=== PATIENT | male | born 1985 | race Caucasian/White ===

== ENCOUNTER 2025-04-03 07:53 | Observation (INO) | payer OTHER ==
[2025-04-03 08:32] LABS: Absolute Eosinophils 0.2 K/uL (0-0.5); Absolute Lymphocytes (CBC) 2.2 K/uL (0.7-4.9); Absolute Monocytes 0.4 K/uL (0.1-1.3); Absolute Neutrophil 3.2 K/uL (1.8-8.0); Basophils % 0.7 % (0-1.3); Eosinophils % 2.6 % (0-4.4); Hematocrit 55.3 % (39.6-49.0); Hemoglobin 19.5 g/dL (13.6-17.9); Lymphocytes % 36.9 % (15.3-44.8); MCH 30.6 pg (27.0-35.0); MCHC 35.3 g/dL (32.0-36.0); MCV 86.8 fL (80-100); MPV 8.8 fL (7.6-11.3); Monocytes % 6.9 % (3.3-12.3); Neutrophils % 52.9 % (41.7-73.7); Nucleated Red Blood Cells % 0.4 % (0-0); Platelets 178 thou/uL (152-406); RBC Red Blood Cell Count 6.37 M/uL (4.33-5.43); Red Cell Distribution Width 15.5 % (12.1-15.2)
[2025-04-03] MEDS ORDERED: ASPIRIN 81 MG CHEWABLE TABLET ONE (08:41)
[2025-04-03 08:45] LABS: Albumin/Globulin Ratio 1.1 (1.1-1.8); Bilirubin Direct 0.2 mg/dL (0-0.2); Bilirubin Indirect, Calculated 0.7 mg/dL (0.2-0.8); Bilirubin Total 0.9 mg/dL (0.2-1.0); Globulin 3.6 g/dL (2.3-3.5); Protein, Total 7.6 g/dL (6.4-8.2); Troponin High Sensitivity 9.8 pg/mL (<58.9)
--- NOTE | 2025-04-03 08:52 | RAD REPORT ---
EXAM: Chest Single View HISTORY: 39 years Male CHEST PAIN COMPARISON: None. FINDINGS: LUNGS/PLEURA: The lungs are clear. No pleural effusions or pneumothorax. No pulmonary edema. CARDIAC/MEDIASTINUM: The cardiac silhouette is within normal limits. UPPER ABDOMEN: No significant abnormality. BONES: No acute abnormality. LINES/TUBES/OTHER: N/A IMPRESSION: No evidence of acute cardiopulmonary disease.
--- NOTE | 2025-04-03 09:26 | EDPHYS ---
Physician Documentation [facility] Name: Jim Garcia Jr Age: 39 yrs Sex: Male : 1985 Arrival Date: 04/03/2025 Time: 07:53 Bed 23 Private MD: ED Physician Dino Heredia HPI: 04/03 09:16 This 39 yrs old Male presents to ER via Ambulatory with complaints of Chest Pain, rt Shoulder Pain. 09:16 Patient presents to the ED with a sharp substernal chest pain rating to the left arm, rt left jaw that start about 30 minutes prior to arrival when the patient was at work. States that this pain has since resolved. Has had this pain intermittently for about a month, was seen at [facility] 1 week ago, was told that it was due to his elevated hematocrit and was phlebotomized. His primary care told him that he had an abnormal EKG, set him up for a outpatient stress test in April, denies other acute complaints at this time, symptoms are moderate in severity, no other aggravating relieving factors.. Historical: - Allergies: 08:32 No Known Allergies; bp - Home Meds: 08:32 losartan oral [Active]; bp - PMHx: 08:32 Hypertensive disorder; bp - Immunization history:: Adult Immunizations up to date. - Infectious Disease History:: Denies. - Social history:: Smoking status: Patient denies any tobacco usage or history of. - Family history:: not pertinent. ROS: 09:16 Constitutional: Negative for fever, chills, and weight loss, Respiratory: Negative for rt shortness of breath, cough, wheezing, and pleuritic chest pain, Abdomen/GI: Negative for abdominal pain, nausea, vomiting, diarrhea, and constipation, MS/Extremity: Negative for injury and deformity, Skin: Negative for injury, rash, and discoloration, Neuro: Negative for headache, weakness, numbness, tingling, and seizure, 09:16 Cardiovascular: Positive for chest pain, Negative for edema, Exam: 09:16 Constitutional: This is a well developed, well nourished patient who is awake, alert, rt and in no acute distress. Head/Face: Normocephalic, atraumatic. Chest/axilla: Normal chest wall appearance and motion. Nontender with no deformity. No lesions are appreciated. Cardiovascular: Regular rate and rhythm with a normal S1 and S2. No gallops, murmurs, or rubs. Normal PMI, no JVD. No pulse deficits. Respiratory: Lungs have equal breath sounds bilaterally, clear to auscultation and percussion. No rales, rhonchi or wheezes noted. No increased work of breathing, no retractions or nasal flaring. Abdomen/GI: Soft, non-tender, with normal bowel sounds. No distension or tympany. No guarding or rebound. No evidence of tenderness throughout. Skin: Warm, dry with normal turgor. Normal color with no rashes, no lesions, and no evidence of cellulitis. MS/ Extremity: Pulses equal, no cyanosis. Neurovascular intact. Full, normal range of motion. Neuro: Awake and alert, GCS 15, oriented to person, place, time, and situation. Cranial nerves II-XII grossly intact. Motor strength 5/5 in all extremities. Sensory grossly intact. Cerebellar exam normal. Normal gait. 09:16 ECG was reviewed by the Attending Physician. Vital Signs: 08:00 BP 156 / 89; Pulse 70; Resp 16; Temp 98; Pulse Ox 98% ; Weight 117.93 kg; Height 5 ft. bp 3 in. ; 09:00 BP 131 / 76; Pulse 67; Resp 15; Pulse Ox 96% ; bp 10:00 BP 133 / 80; Pulse 66; Resp 15; Pulse Ox 95% ; bp 11:00 BP 120 / 65; Pulse 61; Resp 15; Pulse Ox 94% ; bp 12:00 BP 131 / 82; Pulse 63; Resp 15; Pulse Ox 97% ; bp 13:00 BP 132 / 78; Pulse 71; Resp 15; Pulse Ox 96% ; bp 08:00 Body Mass Index 46.06 (117.93 kg, 160.02 cm) bp MDM: 08:26 Medical Screening Exam initiated rt 09:16 Differential diagnosis: ACS, pneumonia, abnormal EKG. HEART Score: History: Highly rt Suspicious (2), ECG: Non specific repolarization disturbance / LBTB / PM (1), Age: < or = 45 years (0), Risk Factors: 1 or 2 risk factors (1), Troponin: < or = 1 x Normal Limit (0), Total Score = 4. The patient was given aspirin in the Emergency Department. Data reviewed: vital signs, nurses notes, lab test result(s), EKG, radiologic studies. Consideration of Admission/Observation Patient was admitted/placed on observation. Management of patient was discussed with the following: Hospitalist: Agrees to admit. I considered the following discharge prescriptions or medication management in the emergency department Medications were administered in the Emergency Department. See MAR. Independent interpretation of the following test(s) in the Emergency Department X-Ray: My interpretation is No infiltrate seen on my interpretation of x-ray images. Care significantly affected by the following chronic conditions: Hypertension. Counseling: I had a detailed discussion with the patient and/or guardian regarding the historical points, exam findings, and any diagnostic results supporting the discharge/admit diagnosis, lab results, radiology results, the need for outpatient follow up. Response to treatment: the patient's symptoms have markedly improved after treatment. 04/03 08:08 Order name: Basic Metabolic Panel; Complete Time: 08:53 bp 04/03 08:08 Order name: CBC with Diff bp 04/03 08:08 Order name: LFT's; Complete Time: 08:53 bp 04/03 08:08 Order name: NT PRO-BNP; Complete Time: 08:53 bp 04/03 08:08 Order name: Troponin HS; Complete Time: 08:53 bp 04/03 10:01 Order name: Basic Metabolic Panel EDMS 04/03 10:01 Order name: Basic Metabolic Panel EDMS 04/03 10:01 Order name: Basic Metabolic Panel EDMS 04/03 10:01 Order name: CBC with Automated Diff EDMS 04/03 10:01 Order name: CBC with Automated Diff EDMS 04/03 10:01 Order name: CBC with Automated Diff EDMS 04/03 10:01 Order name: Troponin High Sensitivity EDMS 04/03 10:01 Order name: Troponin High Sensitivity EDMS 04/03 10:01 Order name: Troponin High Sensitivity EDMS 04/03 10:38 Order name: CBC Smear Scan EDMS 04/03 08:08 Order name: XRAY Chest (1 view); Complete Time: 08:53 bp 04/03 08:08 Order name: Cardiac monitoring; Complete Time: 08:08 bp 04/03 08:08 Order name: EKG - Nurse/Tech; Complete Time: 08:08 bp 04/03 08:08 Order name: IV Saline Lock; Complete Time: 08:35 bp 04/03 08:08 Order name: Labs collected and sent; Complete Time: 08:35 bp 04/03 08:08 Order name: O2 Per Protocol; Complete Time: 08:09 bp 04/03 08:08 Order name: O2 Sat Monitoring; Complete Time: 08:09 bp EC:16 Rate is 74 beats/min. Rhythm is regular, Normal Sinus Rhythm with No ectopy. QRS Hood rt is Normal. SD interval is normal. QRS interval is normal. QT interval is normal. No Q waves. T waves are Inverted in leads I, II, III, aVF, V5, V6. Administered Medications: 08:45 Drug: Aspirin PO Chewable Tablet 324 mg PO once; 81 mg tablets x 4 Route: PO; bp 08:52 Follow up: Response: No adverse reaction bp Disposition Summary: 04/03/25 09:25 Hospitalization Ordered Notes: Hospitalization Status: Observation rt Provider: Samuel Ac rt Condition: Stable rt Problem: new rt Symptoms: have improved rt Bed/Room Type: Standard rt Location: Telemetry/MedSurg (observation)(04/03/25 16:32) bd Room Assignment: 223(04/03/25 16:32) bd Diagnosis - Chest pain, unspecified rt Forms: - Medication Reconciliation Form rt - SBAR form rt - Leadership Thank You Letter rt Signatures: Dispatcher [employer] EDDestini Millard Shelby, RN Evens Darnell RN RN bp Dino Heredia MD MD rt Corrections: (The following items were deleted from the chart) 08:09 08:09 BASIC METABOLIC PANEL+C.LAB.BRZ ordered. EDMS EDMS 08:09 08:09 CBC+H.LAB.BRZ ordered. EDMS EDMS 08:09 08:09 HEPATIC FUNCTION+C.LAB.BRZ ordered. EDMS EDMS 08:09 08:09 PROBNP+C.LAB.BRZ ordered. EDMS EDMS 08:09 08:09 Troponin High Sensitivity+C.LAB.BRZ ordered. EDMS EDMS 08:09 08:09 Chest Single View+RAD.RAD.BRZ ordered. EDMS EDMS 10:40 09:25 Telemetry/MedSurg (observation) rt ss 10:40 09:25 rt ss 16:32 10:40 [facility] ER HOLD ss bd 16:32 10:40 ERHOLD- ss bd
--- NOTE | 2025-04-03 09:26 | ER ---
Nurse's Notes [facility] Name: Jim Garcia Jr Age: 39 yrs Sex: Male : 1985 Arrival Date: 04/03/2025 Time: 07:53 Bed 23 Private MD: Diagnosis: Chest pain, unspecified Presentation: 04/03 08:00 Chief complaint: Patient states: LEFT SIDED CP SINCE WAKING. Coronavirus screen: At bp this time, the client does not indicate any symptoms associated with coronavirus-19. Ebola Screen: No symptoms or risks identified at this time. Initial Sepsis Screen: Does the patient meet any 2 criteria? No. Patient's initial sepsis screen is negative. Does the patient have a suspected source of infection? No. Patient's initial sepsis screen is negative. Risk Assessment: Do you want to hurt yourself or someone else? Patient reports no desire to harm self or others. Onset of symptoms was April 03, 2025 at 06:30. 08:00 Method Of Arrival: Ambulatory bp 08:00 Acuity: KODY 3 bp Triage Assessment: 08:32 General: Appears in no apparent distress. comfortable, Behavior is calm, cooperative, bp appropriate for age. Pain: Complains of pain in chest. EENT: No deficits noted. Neuro: No deficits noted. Cardiovascular: Reports chest pain. Respiratory: No deficits noted. GI: No signs and/or symptoms were reported involving the gastrointestinal system. : No signs and/or symptoms were reported regarding the genitourinary system. Derm: No deficits noted. Musculoskeletal: No deficits noted. Historical: - Allergies: 08:32 No Known Allergies; bp - Home Meds: 08:32 losartan oral [Active]; bp - PMHx: 08:32 Hypertensive disorder; bp - Immunization history:: Adult Immunizations up to date. - Infectious Disease History:: Denies. - Social history:: Smoking status: Patient denies any tobacco usage or history of. - Family history:: not pertinent. Screenin:00 [facility] ED Fall Risk Assessment (Adult) History of falling in the last 3 months, bp including since admission No falls in past 3 months (0 pts) Confusion or Disorientation No (0 pts) Intoxicated or Sedated No (0 pts) Impaired Gait No (0 pts) Mobility Assist Device Used No (0 pt) Altered Elimination No (0 pt) Score/Fall Risk Level 0 - 2 = Low Risk Oriented to surroundings. Abuse screen: Denies threats or abuse. Denies injuries from another. Nutritional screening: No deficits noted. Tuberculosis screening: No symptoms or risk factors identified. Assessment: 08:00 General: SEE TRIAGE NOTE. bp 10:00 Reassessment: Patient appears in no apparent distress at this time. Patient is alert, bp oriented x 3, equal unlabored respirations, skin warm/dry/pink. 12:00 Reassessment: Patient appears in no apparent distress at this time. Patient is alert, bp oriented x 3, equal unlabored respirations, skin warm/dry/pink. 13:04 Reassessment: SEE [employer]. bp Vital Signs: 08:00 BP 156 / 89; Pulse 70; Resp 16; Temp 98; Pulse Ox 98% ; Weight 117.93 kg; Height 5 ft. bp 3 in. ; 09:00 BP 131 / 76; Pulse 67; Resp 15; Pulse Ox 96% ; bp 10:00 BP 133 / 80; Pulse 66; Resp 15; Pulse Ox 95% ; bp 11:00 BP 120 / 65; Pulse 61; Resp 15; Pulse Ox 94% ; bp 12:00 BP 131 / 82; Pulse 63; Resp 15; Pulse Ox 97% ; bp 13:00 BP 132 / 78; Pulse 71; Resp 15; Pulse Ox 96% ; bp 08:00 Body Mass Index 46.06 (117.93 kg, 160.02 cm) bp ED Course: 07:55 Patient arrived in ED. im 07:55 Dino Heredia MD is Attending Physician. rt 08:00 Patient has correct armband on for positive identification. Client placed on continuous bp cardiac and pulse oximetry monitoring. NIBP monitoring applied. secured entrance monitor on. Pulse ox on. NIBP on. 08:00 Initial lab(s) drawn, by me, sent to lab. EKG done, by ED staff, reviewed by Dino Heredia MD. Inserted saline lock: 20 gauge in right forearm, using aseptic technique. Blood collected. Flushed with 10 mL NS. 08:08 Evens Patel, RN is Primary Nurse. bp 08:32 Triage completed. bp 08:32 Arm band placed on. bp 08:42 XRAY Chest (1 view) In Process Unspecified. EDMS 09:25 Samuel Ac is Hospitalizing Provider. rt 13:02 No provider procedures requiring assistance completed. Patient admitted, IV remains in bp place. Patient maintains SpO2 saturation greater than 95% on room air. Administered Medications: 08:45 Drug: Aspirin PO Chewable Tablet 324 mg PO once; 81 mg tablets x 4 Route: PO; bp 08:52 Follow up: Response: No adverse reaction bp Medication: 08:00 VIS not applicable for this client. bp Outcome: 09:25 Decision to Hospitalize by Provider. rt 13:03 Admitted to ER Hold. Please see [facility] for further documentation. bp 13:03 Condition: stable 13:03 Instructed on the need for admit, 17:14 Patient left the ED. iw Signatures: Dispatcher [employer] EDMS Portia Adkins RN RN iw Evens Patel RN RN bp Dino Heredia MD MD rt Amalia Roca im
[2025-04-03] MEDS ORDERED: ONDANSETRON 4 MG/2 ML VIAL IV PRN (09:57)
--- NOTE | 2025-04-03 10:04 | P.HP ---
Certification for Inpatient Patient admitted to: Observation With expected LOS: <2 Midnights Patient will require the following post-hospital care: None Practitioner: I am a practitioner with admitting privileges, knowledge of patient current condition, hospital course, and medical plan of care. Services: Services provided to patient in accordance with Admission requirements found in Title 42 Section 412.3 of the Code of Federal Regulations Patient History Date of Service: 04/03/25 Reason for admission: Chest pain History of Present Illness: 39-year-old male with history of hypertension presents to the emergency department chief complaint of hypertension, chest pain. He reports that for the last week or so he has been having intermittent episodes of chest pain with associated neck pain. He takes losartan daily for his blood pressure, this morning he noticed that his blood pressure was 170/100, he took his medications and while at work began to feel lightheaded and anxious subsequently developing some chest pain. He reports that the episodes of pain last a few seconds at a time radiate around the left anterior chest wall, they are nonreproducible and not associated with shortness of breath. He does admit to taking testosterone, tren and another supplement although not very regularly. He was briefly hospitalized at [facility] around 1 week ago he states and had therapeutic phlebotomy performed after the hospitalization. Patient was evaluated here in the emergency department his labs are significant for initial high sensitive troponin of 9.8 hemoglobin 19.5 hematocrit 55.3. ED provider wishes to admit patient under observation for ACS rule out. - Past Medical/Surgical History -: Hypertension -: Hernia repair Psychosocial/ Personal History: Lives at home with family - Social History Alcohol use: No CD- Drugs: No Caffeine use: Yes Place of Residence: Home Review of Systems 10-point ROS is otherwise unremarkable Cardiovascular: Chest Pain Physical Examination - Physical Exam General: Alert, In no apparent distress, Oriented x3 HEENT: Atraumatic, PERRLA, EOMI Neck: Supple, 2+ carotid pulse no bruit, No LAD Respiratory: Clear to auscultation bilaterally, Normal air movement Cardiovascular: Regular rate/rhythm, Normal S1 S2 Gastrointestinal: Normal bowel sounds, No tenderness Musculoskeletal: No tenderness Integumentary: No rashes Neurological: Normal gait, Normal speech, Normal strength at 5/5 x4 extr, Normal affect - Studies Laboratory Data (last 24 hrs) 04/03/25 04/03/25 08:15 08:15 WBC 6.00 Hgb 19.5 H Hct 55.3 H Plt Count 178 Sodium 138 Potassium 4.0 BUN 17 Creatinine 1.14 Glucose 92 Total Bilirubin 0.9 AST 40 H ALT 98 H Alkaline Phosphatase 92 Assessment and Plan - Plan Assessment: Chest pain rule out ACS Hypertension Plan: Chest pain rule out ACS Multiple episodes of chest pain over the last week Short in duration lasting few seconds at a time With seen at [facility] around a week ago Had therapeutic flow to be performed for elevated hematocrit secondary to testosterone supplementation Cardiology consultation, trend troponins and monitor on telemetry Continue daily aspirin, statin Hypertension Continue losartan DVT PPX: Lovenox Code status: Full Discharge Plan: Home Plan to discharge in: 24 Hours - Advance Directives Does patient have a Living Will: No Does patient have a Durable POA for Healthcare: No - Code Status/Comfort Care Code Status Assessed: Yes (Full code) Critical Care: No Time Spent Managing Pts Care (In Minutes): 61
[2025-04-03 10:37] LABS: Blood Morphology Comment NOT SEEN (NOT SEEN); Platelet Estimate ADEQ; White Blood Cell Scan OPK (OK)
[2025-04-03 17:58] VITALS: O2SAT 96
[2025-04-03] MEDS: ATORVASTATIN 40 MG TAB PO SCH (20:54)
[2025-04-04 06:56] LABS: Absolute Eosinophils 0.2 K/uL (0-0.5); Absolute Lymphocytes (CBC) 2.1 K/uL (0.7-4.9); Absolute Monocytes 0.4 K/uL (0.1-1.3); Absolute Neutrophil 3.5 K/uL (1.8-8.0); Basophils % 0.7 % (0-1.3); Eosinophils % 3.2 % (0-4.4); Hemoglobin 18.8 g/dL (13.6-17.9); Lymphocytes % 33.8 % (15.3-44.8); MCH 29.3 pg (27.0-35.0); MCHC 34.1 g/dL (32.0-36.0); MCV 85.8 fL (80-100); MPV 8.5 fL (7.6-11.3); Monocytes % 6.1 % (3.3-12.3); Neutrophils % 56.2 % (41.7-73.7); Nucleated Red Blood Cells % 0.3 % (0-0); Platelets 185 thou/uL (152-406); RBC Red Blood Cell Count 6.41 M/uL (4.33-5.43); Red Cell Distribution Width 15.1 % (12.1-15.2)
[2025-04-04 07:12] LABS: Anion Gap 8.3 mEq/L (5.0-15.0); Potassium 4.3 mEq/L (3.5-5.1)
[2025-04-04] MEDS: ENOXAPARIN 40 MG/0.4 ML SQ SCH (09:00)
[2025-04-04] MEDS: ASPIRIN EC 81 MG TAB PO SCH (09:45)
[2025-04-04] MEDS: LOSARTAN POTASSIUM 50 MG TABLET PO SCH (09:45)
[2025-04-04] MEDS: MORPHINE 2 MG/ML SYR IV PRN (10:41)
[2025-04-04 11:21] VITALS: BMI 46.0
[2025-04-04 12:58] VITALS: BP 133/74; TEMP 98.2
--- NOTE | 2025-04-04 14:49 | P.CNS ---
Date of Consult: 04/04/25 Chief Complaint: Chest pain History of Present Illness: Patient with no significant PMH presented with chest pain that has been going on for few weeks, sharp, left sided, denies any other cardiac symptoms. Allergies No Known Allergies Allergy (Unverified 04/03/25 10:37) Home medications list reviewed: Yes Home Medications: Losartan Potassium 50 mg PO BID 04/03/25 - Past Medical/Surgical History Diabetic: No -: Hypertension -: Hernia repair Psychosocial/ Personal History: Lives at home with family - Social History Alcohol use: No CD- Drugs: No Caffeine use: Yes Place of Residence: Home Review of Systems 10-point ROS is otherwise unremarkable Physical Examination Temp Pulse Resp BP Pulse Ox 98.2 F 71 16 133/74 97 04/04/25 12:00 04/04/25 12:00 04/04/25 12:00 04/04/25 12:00 04/04/25 12:00 General: Alert, In no apparent distress HEENT: Atraumatic, PERRLA, Mucous membr. moist/pink, EOMI, Sclerae nonicteric Neck: Supple, 2+ carotid pulse no bruit, No LAD, Without JVD or thyroid abnormality Respiratory: Clear to auscultation bilaterally, Normal air movement Cardiovascular: Regular rate/rhythm, Normal S1 S2 Gastrointestinal: Normal bowel sounds, No tenderness Musculoskeletal: No tenderness Integumentary: No rashes Neurological: Normal gait, Normal speech, Normal tone, Normal affect Lymphatics: No axilla or inguinal lymphadenopathy - Problems (1) Chest pain Current Visit: Yes Status: Acute Plan: atypical, negative cardiac enzymes outpatient follow up with cardiology for possible stress test no further inpatient cardiac work up needed. (2) HTN (hypertension) Current Visit: Yes Status: Acute Plan: continue losartan (3) HLD (hyperlipidemia) Current Visit: Yes Status: Acute Plan: continue lipitor 40 mg daily
--- NOTE | 2025-04-04 15:28 | P.DS ---
Admission Date: 04/03/25 Discharge Date: 04/04/25 Disposition: ROUTINE DISCHARGE Discharge Condition: GOOD Reason for Admission: Chest pain Brief History of Present Illness: 39-year-old male with history of hypertension presents to the emergency department chief complaint of hypertension, chest pain. He reports that for the last week or so he has been having intermittent episodes of chest pain with associated neck pain. He takes losartan daily for his blood pressure, this morning he noticed that his blood pressure was 170/100, he took his medications and while at work began to feel lightheaded and anxious subsequently developing some chest pain. He reports that the episodes of pain last a few seconds at a time radiate around the left anterior chest wall, they are nonreproducible and not associated with shortness of breath. He does admit to taking testosterone, tren and another supplement although not very regularly. He was briefly hospitalized at [facility] around 1 week ago he states and had therapeutic phlebotomy performed after the hospitalization. Patient was evaluated here in the emergency department his labs are significant for initial high sensitive troponin of 9.8 hemoglobin 19.5 hematocrit 55.3. ED provider wishes to admit patient under observation for ACS rule out. Hospital Course: Assessment: Chest pain rule out ACS Hypertension Patient came to the hospital for left-sided chest pain lasting for few seconds at a time. He was admitted under observation, troponins were negative and trended flat. D-dimer was also negative. Patient had recently been helping somebody else move, pain is likely more musculoskeletal in nature. Will trial Flexeril. Patient was also seen by cardiology recommends outpatient follow-up w ith PCP and arrangements for stress test. He recently underwent therapeutic phlebotomy at outside hospital, will need to monitor CBC with PCP, recommend repeat CBC in 1 week. Continue home medications, follow-up with primary care doctor to schedule stress test Vital Signs/Physical Exam: Temp Pulse Resp BP Pulse Ox 98.2 F 71 16 133/74 97 04/04/25 12:00 04/04/25 12:00 04/04/25 12:00 04/04/25 12:04/04/25 12:00 General: Alert, In no apparent distress, Oriented x3 HEENT: Atraumatic, PERRLA Neck: Supple, JVD not distended Respiratory: Clear to auscultation bilaterally, Normal air movement Cardiovascular: Regular rate/rhythm, Normal S1 S2 Gastrointestinal: Normal bowel sounds, No tenderness Musculoskeletal: No tenderness Integumentary: No rashes Neurological: Normal speech, Normal affect Laboratory Data at Discharge: WBC 6.20 thou/uL (4.3-10.9) 04/04/25 06:37 Hgb 18.8 g/dL (13.6-17.9) H 04/04/25 06:37 Hct 55.0 % (39.6-49.0) H 04/04/25 06:37 Plt Count 185 thou/uL (152-406) 04/04/25 06:37 Sodium 138 mEq/L (136-145) 04/04/25 06:37 Potassium 4.3 mEq/L (3.5-5.1) 04/04/25 06:37 BUN 17 mg/dL (7-18) 04/04/25 06:37 Creatinine 1.32 mg/dL (0.70-1.30) H 04/04/25 06:37 Glucose 97 mg/dL (74-106) 04/04/25 06:37 Total Bilirubin 0.9 mg/dL (0.2-1.0) 04/03/25 08:15 AST 40 U/L (15-37) H 04/03/25 08:15 ALT 98 U/L (16-61) H 04/03/25 08:15 Alkaline Phosphatase 92 U/L (45-117) 04/03/25 08:15 Home Medications: Losartan Potassium 50 mg PO BID 04/03/25 Cyclobenzaprine HCl [Flexeril] 5 mg PO TID PRN #20 tab 04/04/25 New Medications: Cyclobenzaprine HCl [Flexeril] 5 mg PO TID PRN #20 tab PRN Reason: Muscle Spasms Physician Discharge Instructions: Patient came to the hospital for left-sided chest pain lasting for few seconds at a time. He was admitted under observation, troponins were negative and trended flat. D-dimer was also negative. Patient had recently been helping somebody else move, pain is likely more musculoskeletal in nature. Will trial Flexeril. Patient was also seen by cardiology recommends outpatient follow-up with PCP and arrangements for stress test. He recently underwent therapeutic phlebotomy at outside hospital, will need to monitor CBC with PCP, recommend repeat CBC in 1 week. Continue home medications, follow-up with primary care doctor to schedule stress test Diet: Regular Activity: Ad rain Followup: LINDA MCKEON [Primary Care Provider] - 1-2 Weeks Time spent managing pt's care (in minutes): 67
--- NOTE | 2025-04-04 20:40 | RAD REPORT ---
EXAM: CT CERVICAL SPINE WITHOUT IV CONTRAST HISTORY: neck/back/shoulder pain COMPARISON: None TECHNIQUE: Multiple contiguous axial images were obtained in a CT of the cervical spine without IV co ntrast. Sagittal and coronal reformats were performed. One or more of the following dose reduction techniques were used: Automated exposure control, adjustment of the mA and kV according to patient si ze, and iterative reconstruction. Unless otherwise specified, incidental findings do not require dedicated imaging follow-up. FINDINGS: The vertebral bodies and intervertebral discs demonstrate normal height and alignment without fractur e or subluxation. No degenerative changes are present. No prevertebral soft tissue swelling is seen. The posterior facets are well aligned. Normal alignment of the skull base with the cervical spine is seen. The lung apices are unremarkable. The cervical soft tissues are unremarkable. IMPRESSION: No evidence of acute osseous abnormality of the cervical spine. Electronically signed by: Leopoldo Mcgarry MD 04/04/2025 06:10 PM CDT Due to temporary technical issues with the PACS[employer] reporting system, reports are being amena d by the in-house radiologist without review as a courtesy to ensure prompt reporting the interpreting radiologist is fully responsible for the content of the report. Transcribed Date/Time: 04/04/2025 8:40 PM
--- NOTE | 2025-04-08 17:03 | EKG ---
Test Date: 2025-04-03 Test Time: 08:07:12 [employer]: BP MEASUREMENT RESULTS: Intervals: Rate: 74 MI: 190 QRSD: 98 QT: 390 QTc: 432 [place]: P: 58 MI: 190 QRS: 42 T: 251 INTERPRETIVE STATEMENTS: Normal sinus rhythm Septal infarct, age undetermined Inferior infarct, age undetermined ST & T wave abnormality, consider lateral ischemia Abnormal ECG No previous ECG available for comparison Electronically Signed On 04-08-25 16:56:43 CDT by Jim Pulido
== END 2025-04-04 16:57 | disposition home or self-care (01) ==
LOC: ER 07:53 → ERHOLD 09:57 → 2ND 16:34
PROVIDERS: ADMIT Internal Medicine; ATTEND Internal Medicine
DX: R07.9 Chest pain, unspecified (principal); I10 Essential (primary) hypertension; E78.5 Hyperlipidemia, unspecified
CPT/HCPCS: 93005; 85025 ×2; 80048 ×2; 36415; 85379; 80076; 84484 ×3; 83880; 72125; 71045; 99285; J2270; G0378 ×4